=== PATIENT | male | born 1980 | race Two or more races ===

== ENCOUNTER 2025-04-27 20:10 | Emergency (ER) | payer MEDICAID ==
[~2025-04-27] VITALS: Ht 175.3 cm; Wt 109.1 kg
[~2025-04-27 20:10] MED LIST: PANT-31 PO
[2025-04-27 22:54] VITALS: BP 163/89; PULSE 60; RESP 18; TEMP 98.1; O2SAT 99
[2025-04-27] MEDS: LIDOCAINE 5% TRANSDERMAL PATCH TD ONE (23:31)
[2025-04-27] MEDS: KETOROLAC TROMETHAMINE 30 MG/ML VIAL IM ONE (23:31)
[2025-04-27] MEDS ORDERED: CYCL-448 PO (23:49)
[2025-04-27] MEDS ORDERED: AMOX250C4 PO (23:50)
[2025-04-27] MEDS ORDERED: LIDO-57 TP (23:50)
== END 2025-04-28 00:14 | disposition home or self-care (01) ==
LOC: EMS 20:10
DX: H65.91 Unspecified nonsuppurative otitis media, right ear (principal); H72.91 Unspecified perforation of tympanic membrane, right ear; M54.50 Low back pain, unspecified; R10.31 Right lower quadrant pain; F12.90 Cannabis use, unspecified, uncomplicated; Z98.890 Other specified postprocedural states; Z79.899 Other long term (current) drug therapy
CPT/HCPCS: 99283; 96372; J1885